=== PATIENT | male | born 1995 | race African-American/Black ===

== ENCOUNTER 2018-10-13 00:51 | Emergency (ER) | payer OTHER ==
[~2018-10-13] VITALS: Ht 177.8 cm; Wt 76.2 kg
[2018-10-13 01:08] VITALS: BP 130/76
[2018-10-13] MEDS ORDERED: FLUORESCEIN SOD 1 MG TEST STRIP RIGHTEYE ONE (05:30)
[2018-10-13] MEDS ORDERED: TETRACAINE HCL 0.5% OPTH(EYE) SOLN 4ML RIGHTEYE ONE (05:30)
== END 2018-10-13 05:59 | disposition home or self-care (01) ==
LOC: ER 00:53
DX: H92.02 Otalgia, left ear (principal); H57.11 Ocular pain, right eye